=== PATIENT | male | born 1970 | race Caucasian/White ===

== ENCOUNTER → 2022-09-28 | Outpatient (CLI) | payer BC ==
[2022-09-29 03:44] LABS: Alternaria alternata IgE <0.10 kU/L; Aspergillus fumagatus IgE <0.10 kU/L; Birch IgE <0.10 kU/L; Cat Epith & Dander IgE 2.57 kU/L; Cladosporian herbarum IgE <0.10 kU/L; Clam IgE <0.10 kU/L; Cockroach IgE <0.10 kU/L; Codfish IgE <0.10 kU/L; Dermato. farinae IgE <0.10 kU/L; Dog Dander IgE 0.25 kU/L; Egg White IgE <0.10 kU/L; Elm IgE <0.10 kU/L; Oak IgE <0.10 kU/L; Peanut IgE <0.10 kU/L; Ragweed,Common IgE 0.13 kU/L; Scallop IgE <0.10 kU/L; Shrimp IgE <0.10 kU/L; Soybean IgE <0.10 kU/L; Walnut IgE (Food) <0.10 kU/L
== END | disposition home or self-care (01) ==
LOC: LABWHC1 13:54
PROVIDERS: ATTEND Internal Medicine Critical Care Medicine
DX: J45.909 Unspecified asthma, uncomplicated (principal)
CPT/HCPCS: 36415; 82785; 85008; 86003